=== PATIENT | female | born 1985 | race African-American/Black ===

== ENCOUNTER 2017-09-29 19:33 | Inpatient (IN) | payer OTHER, MEDICAID ==
[~2017-09-29] VITALS: Ht 167.6 cm; Wt 110.0 kg
[~2017-09-29 19:33] MED LIST: MIRT45TA3 PO
[2017-09-29] MEDS ORDERED: IBUPROFEN 600 MG TAB PO ONE ×2 (19:51→20:00)
[2017-09-29] MEDS ORDERED: SODIUM CHLORIDE 0.9% 1,000 ML IV ONE ×2 (20:45→22:30)
[2017-09-29] MEDS ORDERED: ONDANSETRON HCL 4 MG/2 ML VIAL IV ONE (20:45)
[2017-09-29 20:51] LABS: Eosinophils # (auto) 0 uL; Mean Corpuscular Hgb Conc. 32.7 g/dL (32.0-36.0)
[2017-09-29 20:53] LABS: Basophils # (auto) 0.1 uL; Basophils % (auto) 0.4 % (0.0-2.0); Hematocrit 36.7 % (36.0-46.0); Lymphocytes % (auto) 4.7 % (10.0-50.0); Mean Corpuscular Hemoglobin 25.7 pg (28.0-32.0); Mean Corpuscular Volume 78.5 fL (80.0-100.0); Monocytes # (auto) 1.1 uL; Monocytes % (auto) 5.3 % (0.0-12.0); Neutrophils # (auto) 18.3 uL; Neutrophils % (auto) 89.6 % (37.0-80.0); Platelet Count (auto) 288 10^3/uL (140-450); Red Blood Cells 4.67 10^6/uL (4.0-5.20); Red Cell Distribution Width 15.4 % (11.8-14.3); White Blood Cell 20.5 10^3/uL (4.4-10.8)
[2017-09-29] MEDS ORDERED: cefTRIAXone 1GM/10ml IVPUSH 10 ML IV ONE (21:00)
[2017-09-29 21:02] LABS: INR 1.02 (0.9-1.15); Partial Thromboplastin Time 32.4 sec (22.64-33.71); Prothrombin Time 11.1 sec (9.37-12.3)
[2017-09-29 21:06] LABS: Albumin 3.3 g/dL (3.4-5.0); BUN/Creatinine Ratio 11.5; Calcium 10.4 mg/dL (8.5-10.1)
[2017-09-29 21:24] LABS: Lactic Acid w/Reflex 2.9 mmol/L (0.4-2.0)
[2017-09-29 21:27] LABS: Potassium 4.3 mmol/L (3.5-5.1)
[2017-09-29 21:29] LABS: Total Protein 8.9 g/dL (6.4-8.2)
[2017-09-29] MEDS ORDERED: metroNIDAZOLE 500 MG TAB PO ONE (22:15)
[2017-09-29] MEDS ORDERED: ONDANSETRON HCL 4 MG/2 ML VIAL IV PRN (22:30)
[2017-09-29] MEDS ORDERED: VANCOMYCIN PER PHARMACY 0 MG IV SCH (22:30)
[2017-09-29] MEDS ORDERED: ACETAMINOPHEN 500 MG TAB PO PRN (22:30)
[2017-09-29] MEDS ORDERED: VANCOMYCIN 1GM/250ML 250 ML IV ONE (22:45)
[2017-09-29] MEDS ORDERED: MORPHINE SULF INJ 2 MG/ML SYRINGE 1ML IV PRN (22:45)
[2017-09-29] MEDS ORDERED: NITROGLYCERIN 0.4 MG SL TAB SL PRN (22:45)
[2017-09-29] MEDS: SODIUM CHLORIDE 0.9% 1,000 ML IV SCH (23:21)
[2017-09-30] VITALS (7 sets, daily range): BP systolic 108–127; BP diastolic 55–71
[2017-09-30] MEDS ORDERED: PIPERACILLIN-TAZOB 2.25GM 50 ML IV SCH (06:00)
[2017-09-30 06:31] LABS: Basophils # (auto) 0.1 uL; Eosinophils # (auto) 0 uL; Monocytes # (auto) 0.7 uL; Platelet Count (auto) 212 10^3/uL (140-450)
[2017-09-30 06:35] LABS: Basophils % (auto) 0.5 % (0.0-2.0); Hematocrit 29.5 % (36.0-46.0); Hemoglobin 10.1 g/dL (12.2-16.2); Lymphocytes # (auto) 1.3 uL; Lymphocytes % (auto) 9.6 % (10.0-50.0); Mean Corpuscular Hemoglobin 26.8 pg (28.0-32.0); Mean Corpuscular Volume 78.6 fL (80.0-100.0); Monocytes % (auto) 5.4 % (0.0-12.0); Neutrophils # (auto) 11.8 uL; Neutrophils % (auto) 84.5 % (37.0-80.0); Red Blood Cells 3.76 10^6/uL (4.0-5.20)
[2017-09-30 06:45] LABS: BUN/Creatinine Ratio 14.2; Calcium 8.5 mg/dL (8.5-10.1); Potassium 4.4 mmol/L (3.5-5.1)
[2017-09-30 07:02] LABS: Albumin 2.5 g/dL (3.4-5.0); BUN/Creatinine Ratio 14.2; Bilirubin, Total 0.6 mg/dL (0.2-1.0); Calcium 8.4 mg/dL (8.5-10.1); Potassium 4.3 mmol/L (3.5-5.1); Total Protein 6.8 g/dL (6.4-8.2)
[2017-09-30] MEDS: SODIUM CHLORIDE 0.9% 1,000 ML IV SCH ×3 (07:15→23:15)
[2017-09-30] MEDS ORDERED: SODIUM CHLORIDE 0.9% 1,000 ML IV ONE (12:45)
[2017-09-30] MEDS ORDERED: MORPHINE SULF INJ 2 MG/ML SYRINGE 1ML IV PRN (13:45)
[2017-09-30] MEDS ORDERED: NITROGLYCERIN 0.4 MG SL TAB SL PRN (13:45)
[2017-09-30 13:56] LABS: Protein, Urine 183.9 mg/dL (0.0-11.9)
[2017-09-30] MEDS: SODIUM CHLOR 0.9% PF (SALINE LOCK) 10ML VIAL IV SCH ×2 (14:00→21:58)
[2017-09-30] MEDS ORDERED: LINEZOLID 600MG/300ML 300 ML IV SCH (14:00)
[2017-09-30 14:04] LABS: Alcohol, Urine < 3.0 mg/dL (0-5); Amphetamine Screen, Urine NEGATIVE (NEGATIVE); Barbiturate Scree,Urine NEGATIVE (NEGATIVE); Benzodiazephine Screen, Urine NEGATIVE (NEGATIVE); Cannabinoid Screen, Urine NEGATIVE (NEGATIVE); Cocaine Screen, Urine NEGATIVE (NEGATIVE); Opiate Scree,Urine NEGATIVE (NEGATIVE); Phencyclidine Screen, Urine NEGATIVE (NEGATIVE)
[2017-09-30 14:05] LABS: Urine Bacteria NONE SEEN /hpf (None Seen); Urine Blood 2+ /uL (Negative); Urine WBC 4503 /hpf (0 - 5); Urine WBC Clumps PRESENT /hpf (None Seen)
[2017-09-30 14:24] LABS: Urine Specific Gravity 1.018 (1.001-1.035)
[2017-09-30 16:44] LABS: % Iron Saturation 3.9 % (15-50)
[2017-09-30] MEDS: PIPERACILLIN-TAZOB 2.25GM 50 ML IV SCH (16:57)
[2017-09-30] MEDS: LINEZOLID 600MG/300ML 300 ML IV SCH (18:28)
[2017-09-30] MEDS: MIRTAZAPINE 30 MG TAB PO SCH (21:58)
[2017-09-30] MEDS ORDERED: VANCOMYCIN 1GM/250ML 250 ML IV SCH (23:00)
[2017-10-01] MEDS ORDERED: INTE1INJ3 SC (00:13)
[2017-10-01] MEDS: PIPERACILLIN-TAZOB 2.25GM 50 ML IV SCH ×4 (00:44→23:40)
[2017-10-01 04:41] VITALS: BP 104/62
[2017-10-01] MEDS: SODIUM CHLOR 0.9% PF (SALINE LOCK) 10ML VIAL IV SCH ×3 (05:40→21:38)
[2017-10-01] MEDS: LINEZOLID 600MG/300ML 300 ML IV SCH ×2 (05:40→18:01)
[2017-10-01 06:45] LABS: Albumin 2.2 g/dL (3.4-5.0); BUN/Creatinine Ratio 21.9; Bilirubin, Total 0.7 mg/dL (0.2-1.0); Calcium 7.8 mg/dL (8.5-10.1); Phosphorus 2.3 mg/dL (2.5-4.90); Potassium 3.9 mmol/L (3.5-5.1); Total Protein 6.2 g/dL (6.4-8.2); Uric Acid 5.2 mg/dL (2.6-6.0)
[2017-10-01] MEDS: SODIUM CHLORIDE 0.9% 1,000 ML IV SCH ×3 (06:47→23:40)
[2017-10-01 09:00] VITALS: BP 99/60
[2017-10-01 12:33] VITALS: BP 106/61
[2017-10-01 16:48] VITALS: BP 112/65
[2017-10-01] MEDS ORDERED: MORPHINE SULFATE 4 MG/ML SYR/VIAL IV PRN (19:30)
[2017-10-01 20:00] VITALS: BP 106/57
[2017-10-01] MEDS: MIRTAZAPINE 30 MG TAB PO SCH (21:35)
[2017-10-02 05:11] VITALS: BP 121/73
[2017-10-02] MEDS: LINEZOLID 600MG/300ML 300 ML IV SCH (05:38)
[2017-10-02] MEDS: SODIUM CHLOR 0.9% PF (SALINE LOCK) 10ML VIAL IV SCH ×3 (05:38→22:00)
[2017-10-02 06:37] LABS: BUN/Creatinine Ratio 12.9; Potassium 3.6 mmol/L (3.5-5.1)
[2017-10-02 06:38] LABS: Calcium 7.7 mg/dL (8.5-10.1)
[2017-10-02 06:44] LABS: Eosinophils # (auto) 0.2 uL; Eosinophils % (auto) 1.7 % (0.0-7.0); Lymphocytes # (auto) 2.5 uL; Monocytes # (auto) 0.8 uL; Neutrophils % (auto) 67.2 % (37.0-80.0); Red Blood Cells 3.42 10^6/uL (4.0-5.20); Red Cell Distribution Width 15.2 % (11.8-14.3)
[2017-10-02 06:46] LABS: Basophils # (auto) 0 uL; Basophils % (auto) 0.4 % (0.0-2.0); Hematocrit 26.9 % (36.0-46.0); Hemoglobin 8.9 g/dL (12.2-16.2); Lymphocytes % (auto) 23.1 % (10.0-50.0); Mean Corpuscular Volume 78.7 fL (80.0-100.0); Monocytes % (auto) 7.6 % (0.0-12.0); Neutrophils # (auto) 7.2 uL; Platelet Count (auto) 194 10^3/uL (140-450); White Blood Cell 10.7 10^3/uL (4.4-10.8)
[2017-10-02 07:29] VITALS: BP 106/62
[2017-10-02] MEDS: SODIUM CHLORIDE 0.9% 1,000 ML IV SCH (08:06)
[2017-10-02] MEDS: PIPERACILLIN-TAZOB 2.25GM 50 ML IV SCH ×2 (08:06→16:00)
[2017-10-02] MEDS ORDERED: LACTULOSE 20Gm/30ML SOLN PO ONE (10:15)
[2017-10-02] MEDS ORDERED: LACTULOSE 20Gm/30ML SOLN PO PRN (10:15)
[2017-10-02] MEDS ORDERED: INTERFERON BETA 1B SC ONE (10:15)
[2017-10-02 11:42] VITALS: BP 114/59
[2017-10-02 17:00] VITALS: BP 109/59
[2017-10-02 22:07] VITALS: BP 115/60
[2017-10-03] MEDS: PIPERACILLIN-TAZOB 2.25GM 50 ML IV SCH ×3 (00:16→17:29)
[2017-10-03 04:50] VITALS: BP 109/68
[2017-10-03] MEDS: SODIUM CHLOR 0.9% PF (SALINE LOCK) 10ML VIAL IV SCH ×3 (05:12→21:47)
[2017-10-03 09:00] VITALS: BP 106/60
[2017-10-03 13:00] VITALS: BP 121/69
[2017-10-03 17:00] VITALS: BP 116/71
[2017-10-03] MEDS ORDERED: MIRTAZAPINE 30 MG TAB PO SCH (22:00)
[2017-10-03 22:18] VITALS: BP 125/75
[2017-10-04] MEDS: PIPERACILLIN-TAZOB 2.25GM 50 ML IV SCH ×2 (00:39→08:12)
[2017-10-04 05:06] VITALS: BP 128/67
[2017-10-04 05:52] LABS: Eosinophils % (auto) 1.3 % (0.0-7.0); Hematocrit 29.9 % (36.0-46.0); Hemoglobin 9.7 g/dL (12.2-16.2); Lymphocytes # (auto) 1.7 uL; Neutrophils # (auto) 8.3 uL; White Blood Cell 11.5 10^3/uL (4.4-10.8)
[2017-10-04 05:55] LABS: Basophils # (auto) 0.1 uL; Basophils % (auto) 0.5 % (0.0-2.0); Eosinophils # (auto) 0.2 uL; Lymphocytes % (auto) 14.5 % (10.0-50.0); Mean Corpuscular Hemoglobin 25.5 pg (28.0-32.0); Mean Corpuscular Hgb Conc. 32.5 g/dL (32.0-36.0); Mean Corpuscular Volume 78.4 fL (80.0-100.0); Monocytes # (auto) 1.4 uL; Monocytes % (auto) 11.8 % (0.0-12.0); Neutrophils % (auto) 71.9 % (37.0-80.0); Platelet Count (auto) 239 10^3/uL (140-450); Red Blood Cells 3.81 10^6/uL (4.0-5.20); Red Cell Distribution Width 15.1 % (11.8-14.3)
[2017-10-04 06:06] LABS: BUN/Creatinine Ratio 13.3; Calcium 8.1 mg/dL (8.5-10.1); Potassium 3.9 mmol/L (3.5-5.1)
[2017-10-04] MEDS: SODIUM CHLOR 0.9% PF (SALINE LOCK) 10ML VIAL IV SCH ×2 (06:36→15:06)
[2017-10-04 08:00] VITALS: BP 115/62
[2017-10-04 08:48] VITALS: BP 115/62
[2017-10-04] MEDS ORDERED: INTERFERON BETA 1B SC SCH (10:00)
[2017-10-04 11:26] VITALS: BP 108/61
[2017-10-04 11:52] VITALS: BP 108/61
== END 2017-10-04 15:26 | disposition home or self-care (01) | DRG 871 ==
LOC: ER 19:33 → TELE 19:34 → TELE-EAST 23:44 → EAST 23:48 → TELE-EAST 10-01 23:42 → EAST 10-02 09:34
PROVIDERS: ADMIT Nurse Practitioner Family; ATTEND Internal Medicine
DX: A41.9 Sepsis, unspecified organism (principal); N17.0 Acute kidney failure with tubular necrosis; E43 Unspecified severe protein-calorie malnutrition; K56.7 Ileus, unspecified; N30.90 Cystitis, unspecified without hematuria; K52.9 Noninfective gastroenteritis and colitis, unspecified; D64.9 Anemia, unspecified; R65.20 Severe sepsis without septic shock; R80.9 Proteinuria, unspecified; E86.9 Volume depletion, unspecified; G35 Multiple sclerosis; R74.8 Abnormal levels of other serum enzymes; Z79.899 Other long term (current) drug therapy; Z68.39 Body mass index [BMI] 39.0-39.9, adult
CPT/HCPCS: 36415; 71045; 74176; 76775; 80048; 80053; 80202; 80307; 81001; 82150; 82570; 82728; 83540; 83550; 83605; 83690; 83880; 84100; 84156; 84300; 84484; 84550; 84702; 85025; 85610; 85730; 86038; 86160; 87040; 87086; 87088; 87186; 87493; 93005; 96361; 96365; 96375; 97163; J2405; J2543

== ENCOUNTER 2023-01-27 17:02 | Emergency (ER) | payer OTHER, MEDICAID ==
[~2023-01-27] VITALS: Ht 167.6 cm; Wt 105.4 kg
[~2023-01-27 17:02] MED LIST changes: +INTE1INJ3 SC; +MIRT1TAB40 PO; -MIRT45TA3 PO
[2023-01-27 18:15] LABS: Basophils # (auto) 0.1 10 ^3/uL (0-0.2); Eosinophils # (auto) 0.1 10 ^3/uL (0-0.8); Hemoglobin 10.6 g/dL (12.2-16.2); Monocytes # (auto) 0.4 10 ^3/uL (0-1.3); Neutrophils # (auto) 3.9 10 ^3/uL (1.6-8.6)
[2023-01-27 18:17] LABS: Basophils % (auto) 1.4 % (0.0-2.0); Eosinophils % (auto) 2.2 % (0.0-7.0); Hematocrit 32.8 % (36.0-46.0); Lymphocytes # (auto) 2.1 10 ^3/uL (0.4-5.4); Lymphocytes % (auto) 31.1 % (10.0-50.0); Mean Corpuscular Hemoglobin 25.3 pg (28.0-32.0); Mean Corpuscular Hgb Conc. 32.3 g/dL (32.0-36.0); Mean Corpuscular Volume 78.5 fL (80.0-100.0); Monocytes % (auto) 6.1 % (0.0-12.0); Neutrophils % (auto) 59.2 % (37.0-80.0); Nucleated Red Blood Cells % 0.1 %; Red Blood Cells 4.18 10^6/uL (4.0-5.20); Red Cell Distribution Width 15.7 % (11.8-14.3); White Blood Cell 6.7 10^3/uL (4.4-10.8)
[2023-01-27 18:33] LABS: Albumin 2.9 g/dL (3.4-5.0); Calcium 8.3 mg/dL (8.5-10.1); Potassium 3.6 mmol/L (3.5-5.1)
[2023-01-27 18:36] LABS: BUN/Creatinine Ratio 17.3 (10.0-20.0); Bilirubin, Total 0.2 mg/dL (0.2-1.0); Total Protein 6.8 g/dL (6.4-8.2)
[2023-01-27 22:45] VITALS: BP 102/40
== END 2023-01-27 23:00 | disposition home or self-care (01) ==
LOC: ER 17:02
DX: G35 Multiple sclerosis (principal); Z48.00 Encounter for change or removal of nonsurgical wound dressing
CPT/HCPCS: 36415; 80053; 83605; 85025; 87040; 93970